=== PATIENT | female | born 1945 | race Caucasian/White ===

== ENCOUNTER 2018-06-12 04:04 | Emergency (ER) | payer MEDICARE, OTHER ==
--- OUTSIDE RECORDS SUMMARY | 2018-06-12 04:10 | XMS REPORT | Continuity of Care Document ---
:1945 External Reference #:[id number] Demographics Address [address] [facility] [address] [place] [address] Home Phone [phone] Email Address [email or web address] Preferred Language en Marital Status Not or Baptism Affiliation Unknown Race White Ethnic Group Not or Author Name Vita Anne Care Team Providers Name Role Phone Rich Culp MD Primary Care Physician Unavailable Payers Date Identification Numbers Payment Provider Subscriber Policy Number: [id number] Medicare Mery Pat PayID: [id number] [address] [place] [address] Policy Number: [id number] [facility] Mery Wrightnell PayID: [id number] [address] [place] [address] Advance Directives Description No Information Available Problems Date Description Provider Status Onset: 07/12/2016 Essential tremor Ana Bradley M.D. Active Onset: 07/12/2016 Torticollis Ana Bradley M.D. Active Family History Date Family Member(s) Observation Comments General Hypercholesterolemia General Cancer General Stroke General Cirrhosis Father due to at age 55, specifics () - paternal unknown aunt CVA Mother due to at age 37, cause () unknown Siblings None Social History Type Date Description Comments Sex Unknown Marital Status Lives With Occupation Retired Tobacco Use Start: Unknown Never Smoked Cigarettes ETOH Use Denies alcohol use Recreational Drug Use Denies Drug Use Tobacco Use Start: Unknown Patient has never smoked Smoking Status Reviewed: 06/11/18 Patient has never smoked Exercise Type/Frequency Exercises sporadically Allergies, Adverse Reactions, Alerts Date Description Reaction Status Severity Comments 05/07/2015 Adhesives Active 05/07/2015 Environmental Active 05/07/2015 Seasonal Active 02/16/2017 Primidone Active 05/06/2015 NKDA Inactive Medications Medication Date Status Form Strength Qnty SIG Indications Ordering Provider Sim Active Tablets 50mg 1 tab Unknown /0000 twice a day12 hours apart.. Claritin Active Capsules 10mg 1 tab qd Unknown / as needed Amlodipine Active Tablets 5mg 1 by mouth Unknown Besylate bid Lisinopril Active Tablets 10mg 1 by mouth Unknown / every day Metformin HCL Active Tablets 500mg 1 by mouth Unknown / daily bid Lipitor Active Tablets 20mg one tab by Unknown / mouth every night at bedtime Albuterol HFA Active Inhaler 2 puffs Unknown every 4-6 hrs as needed Flonase Active Suspension 50mcg/Act One [place] Unknown Allergy Relief Daily as Needed Vitamin D Active Chewtabs 400Unit once a day Unknown (Cholecalcifer / ol) Calcium Active Chewtabs 500mg 1 by mouth Unknown / every day Levothyroxine Active Solution 100mcg 30uni 1 by mouth Unknown Sodium Rec ts every day Magnesium Active Tablets 400mg take one Unknown Oxide tablet by mouth once a day Synthroid 08/21 Hx Tablets 25mcg take one capsule/vega Merritt M.D. - blet daily 08/20 by mouth brand name preferable Clonazepam 08/21 Hx Tablets 0.5mg 30tab Take / G25.0 liliana s by osvaldo Merritt M.D. - twice a 12/18 day, for somnolence Levothyroxine 06/06 Hx Tablets 300mcg 90tab 1 by mouth Akhil Sawant s every day MD Lulu - 08/20 Primidone 11/22 Hx Tablets 50mg 120ta 1 - 4 tabs G25.0 Ana M. bs by mouth Mirna, - every M.D. 08/20 night directed (pt not currently taking 02/16/17) Klonopin 07/12 Hx Tablets 0.5mg 60tab 1/2- 2 G25.0 Ana M. s tablets by Mirna, - mouth as M.D. 08/21 Synthroid Hx Tablets 100mcg 1 by mouth Unknown / every day - 08/21 Singulair 00/00 Hx Tablets 10mg 1 by mouth Unknown /0000 every day - 08/20 Aspirin Ec Low Hx Tablets DR 81mg 1 by mouth Unknown Dose /0000 every day - 11/21 Cephalexin Hx Capsules 500mg twice Midura, /0000 daily MD Meet - 12/18 Immunizations Description No Information Available Vital Signs Date Vital Result Comment 06/11/2018 4:06pm Height 64 inches 5'4" Weight 165.00 lb Heart Rate 60 /min BP Systolic 122 mmHg BP Diastolic 60 mmHg BMI (Body Mass Index) 28.3 kg/m2 02/06/2018 3:22pm Height 64 inches 5'4" Weight 164.75 lb with shoes Heart Rate 56 /min BP Systolic 126 mmHg Rue BP Diastolic 56 mmHg Rue BP Systolic Sitting 130 mmHg Lue BP Diastolic Sitting 56 mmHg Lue BMI (Body Mass Index) 28.3 kg/m2 Ejection Fraction 60-65% Echocardiogram 01/08/18 12/19/2017 10:45am Height 64 inches 5'4" Weight 164.38 lb with shoes Heart Rate 64 /min BP Systolic 110 mmHg Lue Reg Cuff BP Diastolic 58 mmHg Lue Reg Cuff BMI (Body Mass Index) 28.2 kg/m2 Ejection Fraction 55% stress echo. Ref 06/24/2015 11/21/2017 10:18am Height 64 inches 5'4" Weight 160.00 lb Heart Rate 58 /min BP Systolic 116 mmHg BP Diastolic 54 mmHg Respiratory Rate 16 /min BMI (Body Mass Index) 27.5 kg/m2 08/21/2017 10:34am Height 64 inches 5'4" Weight 156.00 lb Heart Rate 64 /min BP Systolic Sitting 124 mmHg BP Diastolic Sitting 60 mmHg Respiratory Rate 16 /min BMI (Body Mass Index) 26.8 kg/m2 06/06/2017 2:14pm Height 64 inches 5'4" Weight 167.00 lb Heart Rate 62 /min BP Systolic 140 mmHg BP Diastolic 80 mmHg Respiratory Rate 17 /min Body Temperature 98.0 F Pain Level 4 BMI (Body Mass Index) 28.7 kg/m2 02/16/2017 10:13am Height 64 inches 5'4" Weight 156.00 lb w/shoes Heart Rate 62 /min BP Systolic Sitting 142 mmHg LA reg cuff BP Diastolic Sitting 68 mmHg LA reg cuff BMI (Body Mass Index) 26.8 kg/m2 Ejection Fraction 55-60% Echo 06/04/15 01/19/2017 2:04pm Height 64 inches 5'4" Weight 160.00 lb BP Systolic 131 mmHg BP Diastolic 78 mmHg Respiratory Rate 15 /min Pain Level 2 BMI (Body Mass Index) 27.5 kg/m2 11/22/2016 11:22am Height 64 inches 5'4" Weight 160.25 lb Heart Rate 64 /min BP Systolic Sitting 118 mmHg BP Diastolic Sitting 62 mmHg Respiratory Rate 16 /min BMI (Body Mass Index) 27.5 kg/m2 07/12/2016 10:56am Height 64 inches 5'4" Weight 162.00 lb Heart Rate 60 /min BP Systolic Sitting 132 mmHg BP Diastolic Sitting 64 mmHg Respiratory Rate 14 /min BMI (Body Mass Index) 27.8 kg/m2 02/16/2016 10:48am Height 64 inches 5'4" Weight 161.00 lb with shoes Heart Rate 56 /min BP Systolic Sitting 116 mmHg LA reg cuff BP Diastolic Sitting 58 mmHg LA reg cuff BMI (Body Mass Index) 27.6 kg/m2 Ejection Fraction 55% Nem 06/24/15 07/21/2015 12:52pm Height 64 inches 5'4" Weight 156.00 lb w/shoes Heart Rate 52 /min BP Systolic Sitting 130 mmHg LA reg cuff BP Diastolic Sitting 64 mmHg LA reg cuff BMI (Body Mass Index) 26.8 kg/m2 Ejection Fraction 55% Stress Test 06/24/15 05/07/2015 1:32pm Height 64 inches 5'4" Weight 160.00 lb Heart Rate 58 /min BP Systolic Sitting 138 mmHg LA, reg BP Diastolic Sitting 72 mmHg LA, reg BMI (Body Mass Index) 27.5 kg/m2 Ejection Fraction 60% 12/05/08 Results Test Date Facility Test Result H/L Range Note Laboratory test 01/05/2018 [facility] Magnesium 1.7 mg/dL Low 1.9-2.[address] [place] [address] [phone] Comp Metabolic 01/05/2018 [facility] Sodium 136 mmol/L N 135- [address] [place] [address] [phone] Potassium 4.7 mmol/L N 3.5-5.0 Chloride 105 mmol/L N 101-111 Co2 Carbon Dioxide 27 mmol/L N 22-32 Anion Gap 4 mmol/L N 2-11 Glucose 235 mg/dL High 70-100 Blood Urea Nitrogen 17 mg/dL N 6-24 Creatinine 0.82 mg/dL N 0.51-0.95 BUN/Creatinine Ratio 20.7 High 8-20 Calcium 9.5 mg/dL N 8.6-10.3 Total Protein 6.7 g/dL N 6.4-8.9 Albumin 4.1 g/dL N 3.2-5.2 Globulin 2.6 g/dL N 2-4 Albumin/Globulin Ratio 1.6 N 1-3 Total Bilirubin 0.60 mg/dL N 0.2-1.0 Alkaline Phosphatase 78 U/L N 34-104 Alt 21 U/L N 7-52 Ast 16 U/L N 13-39 Egfr Non- 68.7 >60 Egfr 83.2 >60 1 Laboratory test 07/12/2016 [facility] Ceruloplasmin 24 mg/dL N 18-53 2 finding [address] [place] [address] [phone] Copper, Serum 1.08 g/mL N 0.75-1.45 3 1 Because ethnic data is not always readily available, this report includes an eGFR for both -Americans and non- Americans. The National Kidney Disease Education Program (NKDEP) does not endorse the use of the MDRD equation for patients that are not between the ages of 18 and 70, are , have extremes of body size, muscle mass, or nutritional status, or are non- or non-. According to the National Kidney Foundation, irrespective of diagnosis, the stage of the disease is based on the level of kidney function: Stage Description GFR(mL/min/1.73 m(2)) 1 Kidney damage with normal or decreased GFR 90 2 Kidney damage with mild decrease in GFR 60-89 3 Moderate decrease in GFR 30-59 4 Severe decrease in GFR 15-29 5 Kidney failure <15 (or dialysis) 2 Adults: Males: 18-36 mg/dL Females: 18-53 mg/dL Pediatrics: Males (mg/dL) Females (mg/dL) 0-30 Days 8-25 3-28 31 Days-11 Month 15-48 15-43 1-3 Years 25-56 29-54 4-6 Years 29-56 26-54 7-9 Years 25-52 23-48 10-12 Years 21-51 21-48 13-15 Years 20-50 21-46 16-18 Years 20-45 22-50 The pediatric ranges are derived from the following criteria: Gaby SJ, Armin ENG, Myah J et al Pediatric reference ranges for Jnde-3-Ohdisviwalevz and ceruloplasmin. Clin. Chem 1997; 43:S1999 Pediatric Reference Ranges, 2nd., SF Gaby,et al. editors. [employer], [place], [place] 1997. Test Performed at: [facility], [address] [place] [id number] B Dariana BEAUCHAMP, FCAP Test Performed by: [employer] [place] [address] [place] [id number] 3 ADDITIONAL INFORMATION This test was developed and its performance characteristics determined by [facility] in a manner consistent with CLIA requirements. This test has not been cleared or approved by the U.S. Food and Drug Administration. Test Performed by: [address] [address] Procedures Date Code Description Status 03/13/2018 79364 ECHO Stress Test Incl Perf Contiuous ekg Monitoring W/Phys Completed Superv 01/08/2018 32268 ECHO Transthoracic, Real-Time 2D With Doppler And Color Completed Flow 01/08/2018 30784 ECHO Transthoracic, Real-Time 2D With Doppler And Color Completed Flow 01/04/2018 11344 Holter Monitor Review (24 hr) review & interp only Completed 01/02/2018 39283 ECG Monitor/Recording W/Visual Superimposition Scanning Completed 12/19/2017 80871 EKG Tracing & Interpretation Completed 02/16/2017 53090 EKG Tracing & Interpretation Completed 02/16/2016 58254 EKG Tracing & Interpretation Completed 06/24/2015 56697 ECHO Stress Test Incl Perf Contiuous ekg Monitoring W/Phys Completed Superv 06/04/2015 55634 ECHO Transthoracic, Real-Time 2D With Doppler And Color Completed Flow 05/14/2015 51330 Holter Monitoring 24 HR New Completed 05/13/2015 48910 Holter Monitoring 24 HR New Completed 05/07/2015 21213 EKG Tracing & Interpretation Completed 12/05/2008 84454 ECHO Transthoracic, Real-Time 2D With Doppler And Color Completed Flow 12/05/2008 57504 ECHO Transthoracic, Real-Time 2D With Doppler And Color Completed Flow Encounters Type Date Location Provider Dx Diagnosis Office Visit 02/06/2018 [facility] Qutaybeh S. I10 Essential ( primary) 3:40p Jamia Esteban hypertension I49.1 Atrial premature depolarization I35.0 Nonrheumatic aortic (valve) stenosis I49.3 Ventricular premature depolarization E78.5 Hyperlipidemia, unspecified Office Visit 12/19/2017 11:00a [facility] Bianka S. I10 Cora Esteban M.D. (primary) hypertension E78.2 Mixed hyperlipidemia R94.31 Abnormal electrocardiogram [ECG] [EKG] I36.1 Nonrheumatic tricuspid (valve) insufficiency R00.1 Bradycardia, unspecified Office Visit 11/21/2017 [facility] Cuate Merritt, G25.0 Essential tremor 10:15a [facility] Office Visit 08/21/2017 Nikkie Merritt G25.0 Essential tremor 10:30a [facility] Office Visit 06/06/2017 [facility] Akhil Lawson M75.32 Calcific 1:45p Services Of tendinitis of C.M.AKee left shoulder Office Visit 02/16/2017 Orth[facility] Zafar Morales M25.562 Pain in left 1:15p Services Of MD Karson knee Kimberly M17.12 Unilateral primary osteoarthritis, left knee Office Visit 02/16/2017 11:00a [facility] Bianka S. I10 Cora Esteban M.D. (primary) hypertension E78.4 Other hyperlipidemia I36.1 Nonrheumatic tricuspid (valve) insufficiency Office Visit 01/19/2017 1:15p Orthopedic Zafar Morales M25.562 Pain in left Services Of Kimberly Ty MD knee M17.12 Unilateral primary osteoarthritis, left knee Office Visit 11/22/2016 11:45a [facility] Ana William G25.0 Essential tremor Services Of Reji Bradley M.D. Office Visit 07/12/2016 11:00a [facility] Ana William G25.0 Essential tremor Services Of Reji Bradley M.D. M43.6 Torticollis Office Visit 02/16/2016 11:00a [facility] Bianka SKee I10 Essential Jamia Esteban (primary) hypertension R00.2 Palpitations E78.4 Other hyperlipidemia I36.1 Nonrheumatic tricuspid (valve) insufficiency R94.31 Abnormal electrocardiogram [ECG] [EKG] Office Visit 07/21/2015 [facility] Bianka Rosenbaum R00.0 Tachycardia, 1:20p Cardiology Jamia Esteban unspecified I10 Essential (primary) hypertension R00.2 Palpitations E78.4 Other hyperlipidemia Office Visit 05/07/2015 1:40p [facility] Bianka S. R01.1 Cardiac murmur, Cardiology Jamia Esteban unspecified R94.31 Abnormal electrocardiogram [ECG] [EKG] I10 Essential (primary) hypertension R00.2 Palpitations E78.4 Other hyperlipidemia R00.0 Tachycardia, unspecified Plan of Treatment Future Appointment(s):12/11/2018 10:15 am - Cuate Merritt M.D. at [facility]06/26/2018 11:00 am - Rhoda Woodruff MD at [facility]06/11/2018 - Cuate Merritt M.D.G25.0 Essential tremorFollow up:Follow up in 6 months
--- NOTE | 2018-06-12 04:41 | ED ---
Palpitations / Dysrhythmia - HPI Summary HPI Summary: The pt is a 73 y/o F presenting to the ED brought in by EMS for heart palpitations. She felt fatigued last night, woke up a little after midnight on , fell back asleep, then woke up around 0300 because she had to urinate, but noticed a rapid heart rate. She checked the bracelet she wears that monitors her HR and BP and noticed a HR of 133bpm. She then woke her up and called EMS. The feeling has passed upon arrival to [facility], and she reports dehydration. She denies chest pain or nausea. Per EMS, the pt's first BP was 188/94, and her second was 117/94. - History of Current Complaint Chief Complaint: EDDysrhythmPalp Time Seen by Provider: 06/12/18 04:18 Hx Obtained From: Patient Onset/Duration: Sudden Onset, Lasting Hours, Resolved Timing: Constant Severity Initially: Moderate Severity Currently: None Character: Fast Aggravating: Nothing Alleviating: Nothing - Allergy/Home Medications Allergies/Adverse Reactions: Allergies Allergy/AdvReac Type Severity Reaction Status Date / Time Adhesive Tape Allergy Rash after Verified 02/06/17 09:34 10 minutes, but doesn't know type enviromental Allergy Mild runny nose Uncoded 02/06/17 09:34 ,eyes PMH/Surg Hx/FS Hx/Imm Hx Previously Healthy: Yes Endocrine/Hematology History: Reports: Hx Diabetes - TYPE II ON ORAL MEDICATION , Hx Thyroid Disease - HYPOTHYROID Cardiovascular History: Reports: Hx Hypercholesterolemia, Hx Hypertension - ON MEDICATION FOR Denies: Hx Pacemaker/ICD Respiratory History: Reports: Hx Asthma - PRN ALBUTEROL INHALER GI History: Reports: Other GI Disorders - abdominal pain intermittent History: Denies: Hx Renal Disease Musculoskeletal History: Reports: Hx Arthritis - WRISTS, SHOULDERS, BACK, KNEE AND HANDS, Hx Rheumatoid Arthritis, Hx Osteoporosis - OSTEOPENIA Sensory History: Reports: Hx Cataracts - RIGHT, Hx Contacts or Glasses - GLASSES , Hx Glaucoma - BILATERAL ?? Denies: Hx Hearing Aid Opthamlomology History: Reports: Hx Cataracts - RIGHT, Hx Contacts or Glasses - GLASSES, Hx Glaucoma - BILATERAL ?? Neurological History: Reports: Hx Migraine - 20 YEARS AGO Psychiatric History: Denies: Hx Panic Disorder - Cancer History Hx Chemotherapy: No Hx Radiation Therapy: No - Surgical History Surgery Procedure, Year, and Place: [id number]- [place] [id number] [place] [place] CATARACTS RIGHT EYE Hx Anesthesia Reactions: No Infectious Disease History: No Infectious Disease History: Denies: Traveled Outside the [place] in Last 30 Days - Family History Known Family History: Negative: Blood Disorder - Social History Alcohol Use: None Hx Substance Use: No Substance Use Type: Reports: None Hx Tobacco Use: No Smoking Status (MU): Never Smoked Tobacco Review of Systems Positive: Fatigue Positive: Palpitations. Negative: Chest Pain Negative: Nausea All Other Systems Reviewed And Are Negative: Yes Physical Exam - Summary Physical Exam Summary: The EKG from EMS shows atrial fibrillation at 124bpm with nonspecific ST changes. VITAL SIGNS: Reviewed. GENERAL: Patient is a well-developed and nourished female who is lying comfortable in the stretcher. Patient is not in any acute respiratory distress. HEAD AND FACE: No signs of trauma. No ecchymosis, hematomas or skull depressions. No sinus tenderness. EYES: PERRLA, EOMI x 2, No injected conjunctiva, no nystagmus. EARS: Hearing grossly intact. Ear canals and tympanic membranes are within normal limits. MOUTH: Oropharynx within normal limits. NECK: Supple, trachea is midline, no adenopathy, no JVD, no carotid bruit, no c- spine tenderness, neck with full ROM. CHEST: Symmetric, no tenderness at palpation LUNGS: Clear to auscultation bilaterally. No wheezing or crackles. CVS: Regular rate and rhythm, S1 and S2 present, no murmurs or gallops appreciated. ABDOMEN: Soft, non-tender. No signs of distention. No rebound no guarding, and no masses palpated. Bowel sounds are normal. EXTREMITIES: FROM in all major joints, no edema, no cyanosis or clubbing. NEURO: Alert and oriented x 3. No acute neurological deficits. Speech is normal and follows commands. SKIN: Dry and warm Triage Information Reviewed: Yes Vital Signs On Initial Exam: Initial Vitals Temp Pulse Resp BP Pulse Ox 97.8 F 67 16 159/77 99 06/12/18 04:11 06/12/18 04:11 06/12/18 04:11 06/12/18 04:11 06/12/18 04:11 Vital Signs Reviewed: Yes Diagnostics - Vital Signs Vital Signs Temp Pulse Resp BP Pulse Ox 06/12/18 04:11 97.8 F 67 16 159/77 99 - Laboratory Result Diagrams: 06/12/18 04:50 06/12/18 04:50 Lab Statement: Any lab studies that have been ordered have been reviewed, and results considered in the medical decision making process. - Radiology CXR Radiology Interpretation Completed By: ED Physician Summary of Radiographic Findings: No acute process. Pending official radiology report. - EKG 0459 Cardiac Rate: Bradycardia - 57bpm EKG Rhythm: Sinus Bradycardia ST Segment: Normal Ectopy: None Course/Dx - Course Course Of Treatment: The pt is a 73 y/o F presenting to the ED brought in by EMS for heart palpitations. When she woke up at 0300, she checked the bracelet she wears that monitors her HR and BP and noticed a HR of 133bpm. She then woke her up and called EMS. The feeling has passed upon arrival to [facility], and she reports dehydration. She denies chest pain or nausea. An EKG from EMS shows atrial fibrillation at 124bpm with nonspecific ST changes. EKG in the ED shows sinus bradycardia at 57bpm. CXR shows no acute process, pending official radiology report. I spoke with Dr. Mott at 0549, who is covering for Dr. Esteban, about the pt's present condition. He states the pt can be d/c'ed home with a Xarelto Rx and dx of paroxysmal AFib, with instructions to f/u with Dr. Esteban. The pt remained asymptomatic in the ED, is presently stable, and agreeable with this plan. - Diagnoses Provider Diagnoses: Paroxysmal atrial fibrillation Discharge - Sign-Out/Discharge Documenting (check all that apply): Patient Departure Patient Received Moderate/Deep Sedation with Procedure: No - Discharge Plan Condition: Stable Disposition: HOME Referrals: Rich Culp MD [Primary Care Provider] - Bianka Esteban MD [Medical Doctor] - Additional Instructions: Take your prescribed medications as instructed. Please follow up with Dr. Esteban in the next 2-3 days. Return to the ED with any new or worsening symptoms. - Attestation Statements Document Initiated by Scribe: Yes Documenting Scribe: Fani Swanson Provider For Whom Scribe is Documenting (Include Credential): Steve Elliott MD. Scribe Attestation: Fani Whitt, scribed for Steve Elliott MD. on 06/12/18 at 0551. Status of Scribe Document: Ready Consult Consult: [id number] - Spoke with Dr. Mott who is covering for Dr. Esteban about the pt's present condition. He states the pt can be d/c'ed home with a Xarelto Rx and dx of paroxysmal AFib, with instructions to f/u with Dr. Esteban.
[2018-06-12 05:06] LABS: ABS Basophils 0 10^3/ul (0-0.2); ABS Eosinophils 0.2 10^3/ul (0-0.6); ABS Lymphocytes 1.5 10^3/ul (1.0-4.8); ABS Monocytes 0.6 10^3/ul (0-0.8); ABS Neutrophils 4.3 10^3/ul (1.5-7.7); ABS Nucleated RBC 0 10^3/ul; Hematocrit 41 % (33-41); Hemoglobin 13.9 g/dL (12.0-16.0); Lymphocyte % 22.5 %; Mean Corpuscular HGB Conc 34 g/dL (31-36); Mean Corpuscular Hemoglobin 29 pg (27-31); Mean Corpuscular Volume 87 fL (80-97); Mean Platelet Volume 9.9 fL (7.4-10.4); Nucleated Red Blood Cells % 0; Platelet Count 221 10^3/uL (150-450); Red Blood Count 4.71 10^6 /uL (3.70-4.87); Red Cell Distribution Width 14 % (10.5-15); White Blood Count 6.6 10^3/uL (3.5-10.8)
[2018-06-12 05:17] LABS: Activated Partial Thrombo Time 27.7 seconds (26.0-36.3); INR 0.77 (0.77-1.02)
[2018-06-12 05:26] LABS: ALT 24 U/L (7-52); Albumin 4.2 g/dL (3.2-5.2); Albumin/Globulin Ratio 1.4 (1-3); Alkaline Phosphatase 86 U/L (34-104); BUN/Creatinine Ratio 20.2 (8-20); Blood Urea Nitrogen 17 mg/dL (6-24); CO2 Carbon Dioxide 23 mmol/L (22-32); Calcium 9.1 mg/dL (8.6-10.3); Chloride 107 mmol/L (101-111); EGFR African American 80.6 (>60); EGFR Non-African American 66.6 (>60); Glucose 270 mg/dL (70-100); Magnesium 1.8 mg/dL (1.9-2.7); Sodium 138 mmol/L (135-145); Total Protein 7.2 g/dL (6.4-8.9)
[2018-06-12 05:28] LABS: Troponin I 0.01 ng/mL (<0.04)
[2018-06-12 05:40] LABS: Anion Gap 8 mmol/L (2-11)
[2018-06-12] MEDS ORDERED: Rivaroxaban TAB(*) 20 MG TAB PO ONE (05:54)
[2018-06-12 06:15] VITALS: BP 149/64
== END 2018-06-12 06:18 | disposition home or self-care (01) ==
LOC: ED 04:04
DX: I48.0 Paroxysmal atrial fibrillation (principal); I10 Essential (primary) hypertension; E11.9 Type 2 diabetes mellitus without complications; E78.00 Pure hypercholesterolemia, unspecified; Z79.84 Long term (current) use of oral hypoglycemic drugs
CPT/HCPCS: 36415; 71045; 80053; 83605; 83735; 83880; 84443; 84484; 85025; 85610; 85730; 93005; 99282